=== PATIENT | male | born 1980 | race Caucasian/White ===

== ENCOUNTER → 2016-12-09 | Outpatient (REF) | payer OTHER | LOC: M LAB REF 10:19 | PROVIDERS: ATTEND Physician Assistant | DX: R50.9 Fever, unspecified (principal) ==

== ENCOUNTER → 2017-06-22 | Outpatient (CLI) | payer BC, OTHER ==
[2017-06-22 16:14] LABS: BLOOD UREA NITROGEN 20 MG/DL (7-18); CREATININE FOR GFR 1.05 MG/DL (0.70-1.30); GLOMERULAR FILTRATION RATE > 60.0 (>60)
== END ==
LOC: M LAB 14:39
PROVIDERS: ATTEND Internal Medicine
DX: R10.32 Left lower quadrant pain (principal)

== ENCOUNTER → 2017-09-09 | Outpatient (CLI) | payer BC, OTHER ==
[2017-09-09 21:35] LABS: COMPLEMENT C3 120 MG/DL (90-180); COMPLEMENT C4 29.9 MG/DL (10-40); IMMUNOGLOBULIN E 20.7 IU/ML (<100); IMMUNOGLOBULIN G 1060 MG/DL (681-1648); IMMUNOGLOBULIN M 71.3 MG/DL (40-230)
[2017-09-09 21:35] LABS: IMMUNOGLOBULIN A 80.7 MG/DL (70-400)
[2017-09-16 00:06] LABS: CLASS DESCRIPTION 0 (.); D001-IgE D pteronyssinus 0.94 kU/L (Class II); E001-IgE Cat Epith/Dander < 0.10 kU/L (Class 0); E005-IgE Dog Dander < 0.10 kU/L (Class 0); F002-IgE Milk 0.26 kU/L (Class 0/I); F004-IgE Wheat 0.31 kU/L (Class 0/I); F005-IGE RYE 0.18 kU/L (Class 0/I); F006-IGE BARLEY 0.12 kU/L (Class 0/I); F007-IGE OAT <0.10 kU/L (Class 0); F008-IGE CORN 0.28 kU/L (Class 0/I); F009-IGE RICE <0.10 kU/L (Class 0); F012-IGE GREEN PEA <0.10 kU/L (Class 0); F013-IgE Peanut 0.18 kU/L (Class 0/I); F014-IgE Soybean < 0.10 kU/L (Class 0); F017-IgE Filbert/Hazlnut 0.12 kU/L (Class 0/I); F018-IgE Brazil Nut <0.10 kU/L (Class 0); F020-IgE Almond 0.24 kU/L (Class 0/I); F024-IgE Shrimp <0.10 kU/L (Class 0); F026-IGE PORK <0.10 kU/L (Class 0); F026-IgE Pork < 0.10 kU/L (Class 0); F027-IGE BEEF <0.10 kU/L (Class 0); F027-IgE Beef < 0.10 kU/L (Class 0); F031-IGE CARROT <0.10 kU/L (Class 0); F033-IGE ORANGE 0.21 kU/L (Class 0/I); F035-IGE POTATO, WHITE <0.10 kU/L (Class 0); F040-IGE TUNA <0.10 kU/L (Class 0); F041-IGE SALMON <0.10 kU/L (Class 0); F044-IGE STRAWBERRY 0.14 kU/L (Class 0/I); F048-IGE ONIONS 0.22 kU/L (Class 0/I); F049-IGE APPLE 0.33 kU/L (Class I); F050-IGE MACKEREL <0.10 kU/L (Class 0); F076-IGE ALPHA LACTALBUMIN 0.31 kU/L (Class 0/I); F077-IGE LACTOGLOBULIN, BETA <0.10 kU/L (Class 0); F078-IGE CASEIN <0.10 kU/L (Class 0); F081-IGE CHEDDAR CHEESE <0.10 kU/L (Class 0); F082-IGE CHEESE MOLD <0.10 kU/L (Class 0); F083-IGE CHICKEN <0.10 kU/L (Class 0); F092-IGE BANANA <0.10 kU/L (Class 0); F094-IGE PEAR <0.10 kU/L (Class 0); F095-IGE PEACH/NECTARINE 0.35 kU/L (Class I); F202-IgE Cashew Nut <0.10 kU/L (Class 0); F204-IGE TROUT <0.10 kU/L (Class 0); F208-IGE LEMON 0.27 kU/L (Class 0/I); F209-IGE GRAPFRUIT 0.12 kU/L (Class 0/I); F214 IgE SPINACH <0.10 kU/L (Class 0); F215-IGE LETTUCE 0.13 kU/L (Class 0/I); F216-IGE CABBAGE/HORSE RADISH 0.28 kU/L (Class 0/I); F225-IGE PUMPK/SUM SQU/ZUCC 0.13 kU/L (Class 0/I); F235-IGE LENTIL <0.10 kU/L (Class 0); F244-IGE CUCUMBER <0.10 kU/L (Class 0); F245-IgE Egg, Whole < 0.10 kU/L (Class 0); F256-IgE Walnut Meat 0.28 kU/L (Class 0/I); F259-IGE GRAPE/WINE VINEGAR <0.10 kU/L (Class 0); F260-IGE BROCCOLI 0.31 kU/L (Class 0/I); F287-IGE KIDNEY BEAN <0.10 kU/L (Class 0); F291-IgE Cauliflower 0.21 kU/L (Class 0/I); F302-IGE TANGERINE 0.12 kU/L (Class 0/I); F303-IGE HALIBUT <0.10 kU/L (Class 0); F306-IGE LIME 0.11 kU/L (Class 0/I); F315-IGE GR BEAN/ STRING BEAN 0.11 kU/L (Class 0/I); F338-IgE Oyster <0.10 kU/L (Class 0); F338-IgE Scallop <0.10 kU/L (Class 0); FX02-IgE Food Mix (Sea Foods) Negative (.); G002-IgE Bermuda Grass < 0.10 kU/L (Class 0); G008-IgE Kentucky Bluegrass 1.85 kU/L (Class III); IgE PERCH <0.35 kU/L (<0.35); M001-IgE Penicillium chrysogen < 0.10 kU/L (Class 0); M002 IgE Cladosporium herbaru < 0.10 kU/L (Class 0); M003 IgE Aspergillus fumigatu < 0.10 kU/L (Class 0); M006-IgE Alternaria alternata < 0.10 kU/L (Class 0); T001-IgE Maple/Box Elder < 0.10 kU/L (Class 0); T003-IgE Common Silver Birch < 0.10 kU/L (Class 0); T006-IgE Cedar, Mountain < 0.10 kU/L (Class 0); T007-IgE Oak, White < 0.10 kU/L (Class 0); T008-IgE Elm, American < 0.10 kU/L (Class 0); T015-IgE Ash, White < 0.10 kU/L (Class 0); T041-IgE Hickory, White < 0.10 kU/L (Class 0); T070-IgE White Mulberry < 0.10 kU/L (Class 0); W001-IgE Ragweed, Short 0.11 kU/L (Class 0/I); W009-IgE Plantain, English 0.11 kU/L (Class 0/I); W014-IgE Pigweed, Rough < 0.10 kU/L (Class 0); W018-IgE Sheep Sorrel < 0.10 kU/L (Class 0)
[2017-09-16 00:06] LABS: ALPHA 1 ANTITRYPSIN 124 mg/dL (90-200)
== END ==
LOC: M LAB 17:01
DX: J30.1 Allergic rhinitis due to pollen (principal); J30.81 Allergic rhinitis due to animal (cat) (dog) hair and dander; J30.89 Other allergic rhinitis; H10.45 Other chronic allergic conjunctivitis; R05 Cough
CPT/HCPCS: 82785

== ENCOUNTER → 2019-09-20 | Outpatient (CLI) | payer BC, OTHER ==
--- NOTE | 2019-09-20 15:38 | REP ---
LEFT FOREARM, TWO VIEWS: Two views of the left forearm performed and compared to prior study of 09/18/2009. There is a metallic foreign body in the lateral soft tissues of the forearm mid aspect. Maximum diameter is 4 mm. It is located approximately 4 mm deep to the skin surface. The underlying osseous structures demonstrate no fracture, dislocation or intrinsic bone disease. There is mild spurring of the coronoid process. Electronically Signed by Marc Pickering MD 09/20/2019 04:15 P
== END ==
LOC: M RAD 14:20
PROVIDERS: ATTEND Plastic Surgery Surgery of the Hand
DX: M25.722 Osteophyte, left elbow (principal); S50.852A Superficial foreign body of left forearm, initial encounter; X58.XXXA Exposure to other specified factors, initial encounter; Y92.9 Unspecified place or not applicable

== ENCOUNTER → 2019-09-21 | Outpatient (REF) | payer OTHER | LOC: M LAB REF 12:35 | PROVIDERS: ATTEND Plastic Surgery Surgery of the Hand | DX: Z18.10 Retained metal fragments, unspecified (principal) ==

== ENCOUNTER → 2019-09-26 | Outpatient (CLI) | payer BC, OTHER ==
--- NOTE | 2019-09-27 03:38 | REP ---
Clinical: Foreign body. Technique: AP and lateral views of the left forearm. Findings: No radiodense foreign body. No subcutaneous emphysema. Osseous structures and joint spaces are intact and normal. Impression: No foreign body identified. Electronically Signed by Jonh Vinson MD 09/27/2019 03:29 A
== END ==
LOC: M RAD 14:35
PROVIDERS: ATTEND Plastic Surgery Surgery of the Hand
DX: Z18.10 Retained metal fragments, unspecified (principal)

== ENCOUNTER → 2019-11-20 | Outpatient (REF) | payer OTHER ==
[2019-11-20 19:37] LABS: BASO % 0.4 % (0.0-1.0); EOS # 0.5 10^3/uL (0.0-0.5); EOS % 5.7 % (0.0-3.0); HEMATOCRIT 48.1 % (42.0-52.0); HEMOGLOBIN 15.7 g/dl (13.5-17.5); LYMPH # 2.2 10^3/uL (1.5-5.0); LYMPH % 28.2 % (24.0-44.0); MEAN CORPUSCULAR HEMOGLOBIN 27.1 pg (27.0-33.0); MEAN CORPUSCULAR HGB CONC 32.6 g/dl (32.0-36.5); MEAN CORPUSCULAR VOLUME 83.1 fl (80.0-96.0); MONO # 0.8 10^3/uL (0.0-0.8); MONO % 10.2 % (0.0-5.0); NEUTROPHILS # 4.4 10^3/uL (1.5-8.5); NEUTROPHILS % 55.2 % (36.0-66.0); PLATELET COUNT, AUTOMATED 263 10^3/uL (150-450); RED BLOOD COUNT 5.79 10^6/uL (4.30-6.10)
[2019-11-20 19:38] LABS: ALT/SGPT 41 U/L (12-78); BILIRUBIN,TOTAL 0.7 MG/DL (0.2-1.0); BLOOD UREA NITROGEN 13 MG/DL (7-18); CALCIUM LEVEL 9.3 MG/DL (8.5-10.1); CARBON DIOXIDE LEVEL 29 MEQ/L (21-32); CHLORIDE LEVEL 105 MEQ/L (98-107); CHOLESTEROL LEVEL 251 MG/DL (<200); CHOLESTEROL RISK RATIO 5.229 (<5); CREATININE FOR GFR 1.04 MG/DL (0.70-1.30); GLOMERULAR FILTRATION RATE > 60.0 (>60); GLUCOSE, FASTING 84 MG/DL (70-100); HDL CHOLESTEROL 48 MG/DL (>40); LDL CHOLESTEROL 175 MG/DL (<100); NON-HDL-C 203 MG/DL; POTASSIUM SERUM 4.1 MEQ/L (3.5-5.1); SODIUM LEVEL 141 MEQ/L (136-145); TOTAL PROTEIN 7.5 GM/DL (6.4-8.2); TRIGLYCERIDES LEVEL 142 MG/DL (<150)
== END ==
LOC: M LABDRWAD 17:05
PROVIDERS: ATTEND Physician Assistant
DX: Z01.818 Encounter for other preprocedural examination (principal)

== ENCOUNTER → 2019-11-27 | Outpatient (CLI) | payer OTHER ==
[~2019-11-27] MED LIST: CLAR5TAB11 PO
== END ==
LOC: M LABSMTC 09:20
PROVIDERS: ATTEND Anesthesiology
DX: Z11.59 Encounter for screening for other viral diseases (principal)
CPT/HCPCS: C9803; U0002

== ENCOUNTER 2019-11-28 10:31 | Outpatient (CLI) | payer BC, OTHER ==
[2019-11-28] MEDS ORDERED: fentaNYL 100 MCG/2 ML INJECTION (J3010) As Ordered ONE (11:08)
[2019-11-28] MEDS ORDERED: MIDAZOLAM INJ 2MG/2ML VIAL (J2250 PER 1MG) As Ordered ONE (11:09)
[2019-11-28] MEDS ORDERED: CLAR5TAB11 PO (11:10)
[2019-11-28 13:00] VITALS: BP 126/74
--- NOTE | 2019-11-28 13:20 | REP ---
MRI brain without contrast: History: Free headaches. Mass at the posterior aspect of the head. Sedation assisted MRI study. . Comparison study: No comparison brain imaging. Technique: Axial and sagittal imaging planes are utilized for T1 and T2-weighted scans. Sequences include spin-echo, fast spin echo, FLAIR, and diffusion weighted sequences. MRI findings: No bony calvarial lesion is seen. Craniocervical junction and upper cervical cord are normal in appearance. There is no MR evidence of significant paranasal sinus disease. No intraorbital abnormality is seen. The lateral, third, and fourth ventricles are normal in size and position. Pickering-white differentiation pattern is intact above and below the tentorium. There is no evidence of intracranial hemorrhage. No mass, infarction, extra-axial fluid collection or midline shift is seen. No abnormal white matter lesion is seen. Impression: Negative noncontrast brain MRI study. Electronically Signed by Joaquim Christian MD 11/28/2019 01:12 P
== END 2019-11-28 13:28 | disposition home or self-care (01) ==
LOC: M SDC 10:31
PROVIDERS: ATTEND Family Medicine
DX: R22.0 Localized swelling, mass and lump, head (principal); R51 Headache
CPT/HCPCS: 70551; J2250; J3010

== ENCOUNTER → 2020-02-19 | Outpatient (REF) | payer OTHER ==
[2020-05-07 09:11] LABS: GLUCOSE, FASTING SEE SEPARATE REPORT
== END ==
LOC: M LABDRWAD 12:33
PROVIDERS: ATTEND Physician Assistant
DX: E78.00 Pure hypercholesterolemia, unspecified (principal)

== ENCOUNTER → 2020-05-16 | Outpatient (CLI) | payer BC, OTHER | LOC: M LABSMTC 13:40 | PROVIDERS: ATTEND Family Medicine | DX: Z20.828 Contact with and (suspected) exposure to other viral communicable diseases (principal) | CPT/HCPCS: C9803; U0003 ==

== ENCOUNTER → 2020-05-20 | Outpatient (CLI) | payer BC, OTHER ==
--- NOTE | 2020-05-20 15:27 | REP ---
INDICATION: ACUTE BRONCHITIS, UNSPECIFIED. COMPARISON: None. FINDINGS: The superior mediastinal structures are midline. The cardiac silhouette is unremarkable in size, shape, and position. The diaphragmatic surfaces of the lungs are regular, and the costophrenic angles are clear. The pulmonary álvarez are clear. The imaged osseous structures are intact. IMPRESSION: There is no acute cardiopulmonary disease. <Electronically signed by Mike García > 05/20/20 [id number]
== END ==
LOC: M LAB 14:05
PROVIDERS: ATTEND Family Medicine
DX: J20.9 Acute bronchitis, unspecified (principal)

== ENCOUNTER → 2020-11-08 | Outpatient (REF) | payer OTHER ==
[2020-11-08 12:57] LABS: BASO % 0.5 % (0.0-1.0); EOS # 0.2 10^3/uL (0.0-0.5); EOS % 3.6 % (0.0-3.0); HEMOGLOBIN 14.6 g/dl (13.5-17.5); LYMPH % 30.6 % (24.0-44.0); MEAN CORPUSCULAR HEMOGLOBIN 27.4 pg (27.0-33.0); MEAN CORPUSCULAR HGB CONC 31.7 g/dl (32.0-36.5); MEAN CORPUSCULAR VOLUME 86.5 fl (80.0-96.0); MONO # 0.7 10^3/uL (0.0-0.8); MONO % 10.5 % (2.0-8.0); NEUTROPHILS # 3.5 10^3/uL (1.5-8.5); NEUTROPHILS % 54.3 % (36.0-66.0); PLATELET COUNT, AUTOMATED 224 10^3/uL (150-450); RED BLOOD COUNT 5.32 10^6/uL (4.30-6.10); WHITE BLOOD COUNT 6.4 10^3/uL (4.0-10.0)
[2020-11-08 13:24] LABS: ALBUMIN 4.1 GM/DL (3.2-5.2); ALT/SGPT 29 U/L (12-78); BILIRUBIN,TOTAL 0.5 MG/DL (0.2-1.0); BLOOD UREA NITROGEN 16 MG/DL (7-18); CALCIUM LEVEL 9.2 MG/DL (8.5-10.1); CARBON DIOXIDE LEVEL 29 MEQ/L (21-32); CHLORIDE LEVEL 110 MEQ/L (98-107); CREATININE FOR GFR 1.18 MG/DL (0.70-1.30); GLOMERULAR FILTRATION RATE > 60.0 (>60); GLUCOSE, FASTING 90 MG/DL (70-100); POTASSIUM SERUM 4.1 MEQ/L (3.5-5.1); SODIUM LEVEL 143 MEQ/L (136-145); TOTAL PROTEIN 7.1 GM/DL (6.4-8.2)
[2020-11-09 18:11] LABS: TESTOSTERONE FREE (DIRECT) 10.6 pg/mL (6.8-21.5)
== END ==
LOC: M LABDRWAD 12:12
PROVIDERS: ATTEND Physician Assistant
DX: F52.21 Male erectile disorder (principal)

== ENCOUNTER → 2021-11-26 | Outpatient (CLI) | payer OTHER ==
[2021-11-26 17:08] LABS: ALBUMIN 3.9 GM/DL (3.2-5.2); ALT/SGPT 44 U/L (12-78); BILIRUBIN,TOTAL 0.5 MG/DL (0.2-1.0); BLOOD UREA NITROGEN 14 MG/DL (7-18); CALCIUM LEVEL 9.5 MG/DL (8.5-10.1); CARBON DIOXIDE LEVEL 26 MEQ/L (21-32); CHLORIDE LEVEL 108 MEQ/L (98-107); CREATININE FOR GFR 1.11 MG/DL (0.70-1.30); GLOMERULAR FILTRATION RATE > 60.0 (>60); GLUCOSE, FASTING 118 MG/DL (70-100); SODIUM LEVEL 141 MEQ/L (136-145); TOTAL PROTEIN 7.2 GM/DL (6.4-8.2)
[2021-11-26 17:17] LABS: BASO % 0.4 % (0.0-1.0); EOS # 0.3 10^3/uL (0.0-0.5); EOS % 4.5 % (0.0-3.0); HEMOGLOBIN 14.5 g/dl (13.5-17.5); LYMPH % 26.4 % (24.0-44.0); MEAN CORPUSCULAR HEMOGLOBIN 27.4 pg (27.0-33.0); MEAN CORPUSCULAR HGB CONC 33.7 g/dl (32.0-36.5); MEAN CORPUSCULAR VOLUME 81.1 fl (80.0-96.0); MONO # 0.8 10^3/uL (0.0-0.8); MONO % 10.1 % (2.0-8.0); NEUTROPHILS # 4.4 10^3/uL (1.5-8.5); NEUTROPHILS % 57.8 % (36.0-66.0); PLATELET COUNT, AUTOMATED 247 10^3/uL (150-450); WHITE BLOOD COUNT 7.6 10^3/uL (4.0-10.0)
[2021-11-26 17:52] LABS: HEPATITIS C VIRUS ABY INDEX 0.1 INDEX (<0.8); HIV 1&2 SCREEN CENTAUR NEGATIVE (NEGATIVE)
== END ==
LOC: M LAB 15:31
PROVIDERS: ATTEND Internal Medicine Infectious Disease
DX: Z77.21 Contact with and (suspected) exposure to potentially hazardous body fluids (principal)

== ENCOUNTER → 2022-12-02 | Outpatient (CLI) | payer BC, OTHER | LOC: M SLEEP HO 11:08 | PROVIDERS: ATTEND Physician Assistant | DX: G47.30 Sleep apnea, unspecified (principal) ==